=== PATIENT | male | born 1965 | race Asian ===

== ENCOUNTER 2018-02-26 18:50 | Outpatient (CLI) | payer OTHER | END 2018-02-26 18:51 | disposition critical access hospital (66) | LOC: EMS 18:50 | PROVIDERS: ATTEND Surgery | DX: R10.813 Right lower quadrant abdominal tenderness (principal); M25.562 Pain in left knee; V49.50XA Passenger injured in collision with unspecified motor vehicles in traffic accident, initial encounter; Y92.413 State road as the place of occurrence of the external cause | CPT/HCPCS: A0425; A0429 ==

== ENCOUNTER 2018-02-26 18:54 | Emergency (ER) | payer OTHER ==
[2018-02-26 19:02] VITALS: BP 154/94
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
== END 2018-02-26 19:37 | disposition home or self-care (01) ==
LOC: EDUNIT# → ED 18:54
DX: Z04.1 Encounter for examination and observation following transport accident (principal); V49.50XA Passenger injured in collision with unspecified motor vehicles in traffic accident, initial encounter; Y92.413 State road as the place of occurrence of the external cause; I10 Essential (primary) hypertension
CPT/HCPCS: 99282; 99283